=== PATIENT | female | born 1955 | race Caucasian/White ===

== ENCOUNTER 2019-12-22 18:32 | Emergency (ER) | payer BC ==
[2019-12-22] MEDS ORDERED: Sodium Chloride 0.9% 1,000 ML IV ONE (19:10)
[2019-12-22] MEDS ORDERED: Sodium Chloride 0.9% 10 ML Syringe FLUSH PRN (19:10)
[2019-12-22] MEDS ORDERED: Ondansetron 4 MG/2 ML SDV IVPUSH ONE (19:10)
--- NOTE | 2019-12-22 20:02 | EDM.PDOC ---
ED HPI GENERAL MEDICAL PROBLEM - General Chief Complaint: General Stated Complaint: FALL-HEAD TRAUMA Time Seen by Provider: 12/22/19 18:45 Source of Information: Reports: Patient, RN History Limitations: Reports: Intoxication - History of Present Illness INITIAL COMMENTS - FREE TEXT/NARRATIVE: 64-year-old female was brought in to the emergency room by EMS for evaluation of head trauma. Patient was drinking in the bar today. Just outside the bar she lost her balance falling backwards and striking her head. No loss of consciousness but patient was unable to remember the event. She is brought in with c-collar precaution and backboard. She states that she drank 2 rum and Cokes and several beers. She denies any extremity pain, weakness, numbness or tingling in her extremities. He denies nausea or abdominal pain. She denies blurred vision or double vision. He has no shortness of breath or chest pain. She had mild bleeding on the back of her head but no definitive a laceration to her scalp she there was a hematoma and softness to the area of the left occipital lobe. Onset: Today Onset Date: 12/22/19 Duration: Constant Location: Reports: Head (Occipital) Quality: Reports: Ache Severity: Moderate Improves with: Reports: None Worsens with: Reports: None Context: Reports: Trauma (Fall outside a bar) Associated Symptoms: Reports: Confusion, Other (Loss of memory of event). 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, See EMS Report - Related Data Allergies Allergy/AdvReac Type Severity Reaction Status Date / Time Penicillins Allergy Rash Verified 12/22/19 19:55 Home Meds: Home Meds Aspirin [Adult Low Dose Aspirin EC] 81 mg PO DAILY 12/22/19 [History] Calcium Carbonate [Calcium] 500 mg PO DAILY 12/22/19 [History] Famotidine [Pepcid AC] 20 mg PO DAILY 12/22/19 [History] Levothyroxine [Synthroid] 100 mcg IV DAILY 12/22/19 [History] Magnesium Amino Acid Chelate [Magnesium] 100 mg PO DAILY 12/22/19 [History] Multivitamin [Daily Multiple Vitamin] 1 each PO DAILY 12/22/19 [History] ED ROS GENERAL - Review of Systems Review Of Systems: Comprehensive ROS is negative, except as noted in HPI. ED EXAM, GENERAL - Physical Exam Exam: See Below Exam Limited By: Intoxication General Appearance: Alert, WD/WN, No Apparent Distress, Other (Intoxicated) Eye Exam: Bilateral Eye: EOMI, PERRL Ears: Normal External Exam, Normal Canal, Hearing Grossly Normal, Normal TMs, Other (No evidence of hall sign) Ear Exam: Bilateral Ear: TM normal Nose: Normal Inspection Throat/Mouth: Normal Inspection, Normal Oropharynx, Normal Voice, No Airway Compromise Head: Other (Softness over the left occipital lobe to palpation) Neck: Non-Tender, Other (Patient is in cervical collar and maintained neutral neck alignment.). No: Tender Lateral, Tender Midline Respiratory/Chest: No Respiratory Distress, Lungs Clear, Normal Breath Sounds, No Accessory Muscle Use, Chest Non-Tender Cardiovascular: Normal Peripheral Pulses, Regular Rate, Rhythm GI/Abdominal: Normal Bowel Sounds, Soft, Non-Tender, Pelvis Stable Extremities: Normal Inspection, Normal Range of Motion, Non-Tender, No Pedal Edema Neurological: Alert, Oriented, No Motor/Sensory Deficits, Memory Loss Recent Events Psychiatric: Normal Affect, Normal Mood Skin Exam: Warm, Dry, Intact, Normal Color, No Rash Lymphatic: No Adenopathy Course - Vital Signs Last Recorded V/S: Last Vital Signs Temp 96.7 F L 12/22/19 18:35 Pulse 82 12/22/19 20:24 Resp 18 12/22/19 20:24 BP 127/77 12/22/19 20:24 Pulse Ox 98 12/22/19 20:24 - Orders/Labs/Meds Orders: Active Orders 24 hr Category Date Time Status Peripheral IV Care [RC] . DIRECTED Care 12/22/19 19:10 Active Ang Neck [CT] Stat Exams 12/22/19 19:10 Ordered Head wo Cont [CT] Stat Exams 12/22/19 19:10 Ordered Sodium Chloride 0.9% [Saline Flush] Med 12/22/19 19:10 Active 10 ml FLUSH Q8HR PRN Peripheral IV Insertion Adult [OM.PC] Routine Oth 12/22/19 19:10 Ordered Medication Orders Sodium Chloride (Saline Flush) 10 ml FLUSH Q8HR PRN PRN Reason: keep vein open Last Admin: 12/22/19 19:15 Dose: 10 ml Labs: Laboratory Tests 12/22/19 12/22/19 Range/Units 19:15 19:15 WBC 8.79 (5.00-10.00) 10^3/uL RBC 4.44 (3.80-5.50) 10^6/uL Hgb 13.5 (12.0-16.0) g/dL Hct 41.1 (37.0-47.0) % MCV 92.6 H (82.0-92.0) fL MCH 30.4 (27.0-31.0) pg MCHC 32.8 (32.0-36.0) g/dL RDW 13.5 (11.5-14.5) % Plt Count 256 (150-400) 10^3/uL MPV 10.5 H (7.4-10.4) fL Immature Gran % (Auto) 0.1 (0.0-5.0) % Neut % (Auto) 49.3 L (50.0-70.0) % Lymph % (Auto) 37.3 (20.0-40.0) % Charlton % (Auto) 7.3 (2.0-8.0) % Eos % (Auto) 5.5 H (1.0-3.0) % Baso % (Auto) 0.5 (0.0-1.0) % Neut # (Auto) 4.34 (2.50-7.00) 10^3/uL Lymph # (Auto) 3.28 (1.00-4.00) 10^3/uL Charlton # (Auto) 0.64 (0.10-0.80) 10^3/uL Eos # (Auto) 0.48 H (0.10-0.30) 10^3/uL Baso # (Auto) 0.04 (0.00-0.10) 10^3/uL Immature Gran # (Auto) 0.01 (0.00-0.50) 10^3/uL Sodium 143 (136-145) mmol/L Potassium 3.8 (3.3-5.3) mmol/L Chloride 103 (98-115) mmol/L Carbon Dioxide 28.8 (21.0-32.0) mmol/L Anion Gap 15.0 (5-15) mmol/L BUN 13 (6-25) mg/dL Creatinine 0.79 (0.51-1.17) mg/dL Est Cr Clr Drug Dosing 63.76 mL/min Estimated GFR (MDRD) > 60 mL/min Glucose 97 (75 - 99) mg/dL Calcium 8.2 L (8.7-10.3) mg/dL Total Bilirubin 0.3 (0.2-1.0) mg/dL AST 26 (15-37) U/L ALT 28 (12-78) U/L Alkaline Phosphatase 67 (46-116) IU/L Total Protein 7.5 (6.4-8.2) g/dL Albumin 3.75 (3.00-4.80) g/dL Ethyl Alcohol 242 H* (NONE DETECTED) mg/dL Meds: Medications Generic Name Dose Route Start Last Admin Trade Name Freq PRN Reason Stop Dose Admin Sodium Chloride 10 ml 12/22/19 19:10 12/22/19 19:15 Saline Flush FLUSH 10 ml Q8HR PRN Administration keep vein open Discontinued Medications Generic Name Dose Route Start Last Admin Trade Name Freq PRN Reason Stop Dose Admin Sodium Chloride 1,000 mls @ 999 mls/hr 12/22/19 19:10 12/22/19 19:15 Normal Saline IV 12/22/19 20:10 999 mls/hr .BOLUS ONE Administration Ondansetron HCl 4 mg 12/22/19 19:10 12/22/19 19:15 Zofran IVPUSH 12/22/19 19:11 4 mg ONETIME ONE Administration - Radiology Interpretation Free Text/Narrative:: CT the head without IV contrast Findings: Extensive streak artifact from something outside the body limits evaluation of a large majority of the brain. Within these limitations, there is no evidence of acute intracranial hemorrhage or extra-axial fluid collection. No hydrocephalus. Posterior left scalp contusion and laceration with a 37 x 42 x 20 mm scalp hematoma. Impression: Left posterior scalp contusion and hematoma. No underlying capillary fracture or acute intracranial hemorrhage. CT of the spine without IV contrast Discussion: No fracture or compression deformity vertebral bodies remain in normal alignment. Cervical spondylosis. No pre-vertebral soft tissue edema. Lung apices are clear. Impression: No acute findings in the cervical spine. - Re-Assessments/Exams Free Text/Narrative Re-Assessment/Exam: 12/22/19 19:55 Patient is alert and attentive. She has loss of the event that occurred with her fall. She remembers the date time and year including place. She denies significant headache. There is swelling and softness over the left occipital lobe. Mild bleeding without the laceration. 12/22/19 19:57 IV was placed in the arm and she was given 1 L normal saline, 4 mg of Zofran IV. Labs were drawn. Patient was taken to CT scan for head and neck with c- collar precautions in place. 12/22/19 20:03 Patient's blood alcohol is 242 Departure - Departure Time of Disposition: 21:00 Disposition: Home, Self-Care 01 Condition: Good Clinical Impression: Alcohol intoxication Qualifiers: Complication of substance-induced condition: with unspecified complication Qualified Code(s): F10.929 - Alcohol use, unspecified with intoxication, unspecified Hematoma of left parietal scalp Qualifiers: Encounter type: initial encounter Qualified Code(s): S00.03XA - Contusion of scalp, initial encounter - Discharge Information Instructions: Alcohol Intoxication, Facial or Scalp Contusion, [id number] Referrals: Lizzy Almodovar [employer] OPERATIONS MANAGER [Primary Care Provider] - Forms: ED Department Discharge Sepsis Event Note - Focused Exam Vital Signs: Vital Signs Temp Pulse Resp BP BP Pulse Ox 12/22/19 20:24 82 18 127/77 98 12/22/19 19:55 88 18 124/60 100 12/22/19 18:35 96.7 F L 72 18 108/66 97 Date Exam was Performed: 12/22/19 Time Exam was Performed: 20:37 - My Orders Last 24 Hours: My Active Orders 12/22/19 19:10 Peripheral IV Care [RC] . DIRECTED Ang Neck [CT] Stat Head wo Cont [CT] Stat Sodium Chloride 0.9% [Saline Flush] 10 ml FLUSH Q8HR PRN Peripheral IV Insertion Adult [OM.PC] Routine - Assessment/Plan Last 24 Hours: My Active Orders 12/22/19 19:10 Peripheral IV Care [RC] . DIRECTED Ang Neck [CT] Stat Head wo Cont [CT] Stat Sodium Chloride 0.9% [Saline Flush] 10 ml FLUSH Q8HR PRN Peripheral IV Insertion Adult [OM.PC] Routine Assessment:: 1. Alcohol intoxication 2. Left posterior scalp hematoma Plan: 1. Return to the ER if worsening headache, visual changes, confusion, focal neurologic changes, or other changes in clinical status occur. 2. Patient should be evaluated every 2 hours for level of consciousness and any confusion or symptoms as described. 3. Instructions were given to family members
[2019-12-22 20:17] LABS: CHLORIDE,CL 103 mmol/L (98-115); SODIUM,NA 143 mmol/L (136-145)
--- NOTE | 2019-12-23 10:13 | CT ---
[id number] CT/CT Head WO IV EXAM: CT Head WO IV CLINICAL DATA: FALL, LAC ON BACK OF HEAD, ETOH COMPARISON STUDY: None FINDINGS: Extensive streak artifact from something outside of the body limits evaluation of a large majority of the brain. Within these limitations, there is no evidence of acute intracranial hemorrhage or extra-axial fluid collection. No hydrocephalus. Posterior left scalp contusion and laceration with a 37 x 42 x 20 mm scalp hematoma. No underlying IMPRESSION: Left posterior scalp contusion and hematoma. No underlying calvarial fracture or acute intracranial hemorrhage Mark Hernandez MD 12/23/19 1013 Thank you for allowing us to participate in the care of your patient.
--- NOTE | 2019-12-23 10:14 | CT ---
[id number] CT/CT Cervical Spine WO IV EXAM: CT Cervical Spine WO IV INDICATION: FALL, ETOH, HIT HEAD COMPARISON: None. DISCUSSION: No fracture or compression deformity. Vertebral bodies remain in normal alignment. Cervical spondylosis. No prevertebral soft tissue edema. Lung apices are clear. IMPRESSION: No acute findings in the cervical spine. Mark Hernandez MD 12/23/19 1013 Thank you for allowing us to participate in the care of your patient.
== END 2019-12-22 21:05 | disposition home or self-care (01) ==
LOC: KA.ED 18:32
DX: S00.03XA Contusion of scalp, initial encounter (principal); F10.120 Alcohol abuse with intoxication, uncomplicated; Z88.0 Allergy status to penicillin; Z79.82 Long term (current) use of aspirin; Z79.899 Other long term (current) drug therapy; Y90.8 Blood alcohol level of 240 mg/100 ml or more; W19.XXXA Unspecified fall, initial encounter; W22.8XXA Striking against or struck by other objects, initial encounter
CPT/HCPCS: 70450; 70498; 80053; 80307; 85025; 96361; 96374; 99284-25; J2405; J7030